=== PATIENT | male | born 1975 ===

== ENCOUNTER 2021-08-21 15:14 | Emergency (ER) | payer SELFPAY ==
[2021-08-21 15:18] VITALS: BP 157/102; PULSE 128; RESP 20; TEMP 36.8; O2SAT 98
--- NOTE | 2021-08-21 16:08 | W.ED.GENAD ---
Discharge Plan Disposition Patient Disposition: HOME Condition: Stable Discharge Details Clinical Impression: Dental infection Primary Care Provider: Unknown,Unknown ED Provider: Giselle Tuttle Home Meds and New Rx's Prescriptions: New clindamycin HCl 150 mg capsule 450 mg PO TID 7 Days Qty: 63 RF: 0 Continued quetiapine [Seroquel] 50 mg Tablet PO DAILY RF: 0 Triumeq 600-50-300 mg Tablet 1 tab PO DAILY RF: 0 Discharge Instructions Instructions: Benzocaine (By mouth), Dental Abscess (ED) Additional Instructions: Please follow up with a dentist after being on antibiotics for at least 5-7 days. Apply warm compresses to outside of mouth. Take antibiotics as directed until they are completed. Rinse mouth with salt water after eating or drinking anything. Practice good oral hygiene. Try to stop smoking if possible. Medical Decision Making 45-year-old male with a past medical history of HIV and bipolar 1 disorder presents to the ER with right lower jaw swelling and dental pain for approximately 1 week. She has generalized poor dentition multiple missing teeth and reports that he is due to get dentures. He denies any chills or fever. He denies any drainage, sore throat, trouble swallowing. Ultrasound at bedside to evaluate for possible fluid collection. No fluid collection seen and area of swelling does feel hard and nonfluctuant. I did discuss follow-up care including follow-up with a dentist, patient was given dental resources. Instructed to rinse mouth after eating or drinking anything applying warm compresses and taking the antibiotics as directed. Clindamycin 450mg PO ordered for now and given to bottle of 12 tablets. Prescription written for 7 days of clindamycin. Patient was given Hurricaine gel topically prior to discharge. Instructed on use by staff air tactical officer. Patient verbalized understanding. This text was generated using [employer] system, please disregard any oddities of phrase or misspellings. HPI General Mode of arrival: ambulatory. Date/Time Provider Initiated Documentation: 08/21/21 15:26. Limitations to Documentation: no limitations. Information obtained by: patient and RN notes reviewed. HPI Narrative: 45 year old male presents to ED with CC of Right lower side jaw swelling and dental abscess. He reports this began 1 week ago. He is HIV positive and is being followed by [facility] in [place]. He denies any fever, chills, trouble swallowing, no drooling or any other associated symptoms. On initial exam he is does have palpable swelling to right lower jaw, however, no area of fluctuance palpated, and POCUS shows no obvious fluid collection. He has generalized poor dentition. PMhx includes HIV, Bipolar 1 Diorder, Depression. He is a daily smoker, endorses occasional ETOH use and marijuana. Related Data Home Medications Medication Instructions Recorded Confirmed Triumeq 1 tab PO DAILY 08/21/21 08/21/21 clindamycin HCl 450 mg PO TID 7 Days #63 cap 08/21/21 quetiapine [Seroquel] mg PO DAILY 08/21/21 Previous Rx's Medication Instructions Recorded clindamycin HCl 450 mg PO TID 7 Days #63 cap 08/21/21 Allergies Allergy/AdvReac Type Severity Reaction Status Date / Time cephalexin [From Keflex] Allergy Unverified 08/21/21 15:24 Penicillins Allergy Unverified 08/21/21 15:24 sulfamethoxazole Allergy Unverified 08/21/21 15:24 [From Bactrim] trimethoprim [From Bactrim] Allergy Unverified 08/21/21 15:24 General Stated Complaint: DentalOral OLIVE: 3 Review of Systems Constitutional Constitutional: Denies chills and Denies fever(s) ENT Ears, Nose, Mouth, and Throat: Denies change in voice, Reports dental pain, Denies dysphagia, Denies vertigo, Denies dizziness, Denies facial pain, Denies neck mass, Denies neck pain and Denies sore throat Cardiovascular Cardiovascular: Denies chest pain and Denies dyspnea Respiratory Respiratory: Denies chest congestion, Denies cough, Denies hemoptysis and Denies dyspnea Gastrointestinal Gastrointestinal: Denies dysphagia Musculoskeletal Musculoskeletal: Denies neck pain Neurologic Neurologic: Denies vertigo and Denies dizziness [facility] Active Problem List Dental infection (Acute) Medical History Bipolar 1 disorder Depression HIV (human immunodeficiency virus infection) Surgical History History of cataract surgery History of colonoscopy Social History Smoking/Tobacco Use Status: Current every day Smoking risk assessment performed?: Yes Alcohol Intake: current Alcohol Intake frequency: holidays/special occasions only Drug use: Daily Substance use type: former substance user and marijuana Do you feel safe at home: Yes Do you feel safe in your relationship?: Yes Exam HENTX Head: normocephalic and atraumatic Ears: hearing grossly normal bilaterally General nose exam: external nose normal Face and sinus: normal facial exam, sinuses nontender and tenderness on the right angle of jaw Mouth: lip normal, tongue normal, oropharynx normal, moist mucous membranes and no drooling Teeth and gingiva: caries, poor dentition and other (Right jaw swelling, no palpable fluctuance, no drainage) Throat: posterior oropharynx normal and uvula midline Course Vital Signs Vital signs: Vital Signs Temperature 36.8 C 08/21/21 15:18 Pulse 128 H 08/21/21 15:18 Respiratory Rate 20 08/21/21 15:18 Blood Pressure 157/102 H 08/21/21 15:18 Pulse Oximetry 98 08/21/21 15:18 Temperature 36.8 C 08/21/21 15:18 Temperature Source Temporal Artery Scan 08/21/21 15:18 Pulse 128 H 08/21/21 15:18 Respiratory Rate 20 08/21/21 15:18 Respiratory Effort Non-Labored 08/21/21 15:27 Blood Pressure 157/102 H 08/21/21 15:18 Blood Pressure Position Sitting 08/21/21 15:18 Pulse Oximetry 98 08/21/21 15:18 Oxygen Delivery Method Room Air 08/21/21 15:18 Oxygen Flow Rate 0 08/21/21 15:18 Pain Level 6 08/21/21 15:27
[2021-08-21] MEDS: Benzocaine 20% Gel 30 GM JAR MM (16:20)
[2021-08-21] MEDS: Clindamycin 150 MG CAP 450 MG PO (16:20)
[2021-08-21] MEDS: Clindamycin 150 MG CAP, 12 CAPS/BTL 450 MG PO (16:22)
[2021-08-21 16:24] VITALS: PULSE 108; RESP 18; O2SAT 97
== END 2021-08-21 16:32 | disposition home or self-care (01) ==
PROVIDERS: Emergency Provider Registered Nurse Emergency
DX: K04.7 Periapical abscess without sinus (principal)
CPT/HCPCS: 99283